=== PATIENT | female | born 1980 ===

== ENCOUNTER 2024-11-12 06:10 | Day surgery (SDC) | payer OTHER ==
[2024-11-06 09:23] VITALS: BP 150/100; BP 150/90
[2024-11-06 09:28] LABS: BASO % 0.5 % (0.1-1.2); EOS # 0.06 (0.04-0.54); EOS % 0.5 % (0.7-7.0); LYMPH # 1.94 (1.18-3.74); LYMPH % 17.1 % (19.3-53.1); MEAN PLATELET VOLUME 11.70 fl (9.4-12.4); MONO # 0.73 (0.24-0.82); MONO % 6.4 % (4.7-12.5); NEUT # 8.54 (1.56-6.13); NEUT % 75.1 % (34.0-71.1); RED CELL DISTRIBUTION WIDTH 13.2 % (11.6-14.4)
[2024-11-06 09:31] LABS: URINE APPEARANCE Clear; URINE BILIRRUBIN Negative (NEGATIVE); URINE BLOOD Negative; URINE COLOR Yellow; URINE GLUCOSE Negative (NEGATIVE); URINE KETONE Trace (NEGATIVE); URINE LEUKOCYTE Negative; URINE NITRATE Negative; URINE PROTEIN Trace (NEGATIVE); URINE UROBILINOGEN 1.0 E.U./dl
[2024-11-06 09:36] LABS: URINE BACTERIA 1888.8 uL (0.0-1933); URINE EPITHELIAL CELLS 68.2 uL (0.0-38.8); URINE RBC 8.0 uL (0.0-20.8); URINE WBC 24.3 uL (0.0-23.2)
[2024-11-06 09:48] LABS: URINE CAST 0.14 uL (0.0-1.40)
[2024-11-06 09:49] LABS: URINE CRYSTALS FEW /HPF; URINE MUCUS MODERATE
[2024-11-06 09:55] LABS: INR 1.0
[2024-11-06 10:57] LABS: ALT/SGPT 22.0 U/L (12-78); AST/SGOT 12.0 U/L (15-37); BILIRUBIN TOTAL 0.59 mg/dL (0.3-1.2); BUN CREA RATIO 22.0 (7.0-25.0); CREATININE SERUM 0.73 mg/dL (0.55-1.02); GFR 87.43; GLOBULINA 3.9 G/DL (2.4-3.5); GLUCOSE FASTING 148.0 mg/dL (65-100); OSMOLALITY SERUM 283.0 MOSM/KG (275-295)
[~2024-11-12] VITALS: Ht 152.4 cm; Wt 104.3 kg
[~2024-11-12 06:10] MED LIST: CANDESARTAN CILE8 MG PO; METFORMIN HCL500 M3 PO; MOUNJARO10 MG/0.5
[2024-11-12] MEDS ORDERED: MORPHINE SULFATE 4 MG/ML VIAL IV ONE ×2 (13:20→13:50)
== END 2024-11-12 15:35 | disposition home or self-care (01) ==
LOC: CIR.AMB 06:10
PROVIDERS: ATTEND Student in an Organized Health Care Education/Training Program
DX: K80.10 Calculus of gallbladder with chronic cholecystitis without obstruction (principal)
CPT/HCPCS: 47563; S2900